=== PATIENT | female | born 1930 | race Caucasian/White ===

== ENCOUNTER 2016-10-06 14:30 | Emergency (ER) | payer MEDICARE, BC ==
--- NOTE | 2016-10-06 16:34 | ED ---
General Adult HPI - General Chief complaint: Wound/Laceration Stated complaint: Laceration Time Seen by Provider: 10/06/16 16:04 Source: patient, RN notes reviewed Mode of arrival: ambulatory Limitations: no limitations - History of Present Illness Initial comments: Patient is a 86-year-old female who presents emergency room today with a chief complaint of laceration to the left ankle and a fall. She does admit that she was walking out towards her was on a tractor she got too close and got hit by one of the arms causing a laceration to the left ankle does cause her to fall down hitting her right hip. She denies any head injury or loss consciousness. She does admit that she's been ambulatory but is having some pain to the medial aspect of the left ankle and right hip area. She states worse with movements. She denies any other complaints. Denies any head injury or loss conscious. Patient denies any recent fever, chills, shortness of breath , chest pain, back pain, abdominal pain, nausea or vomiting, numbness or tingling, dysuria or hematuria, constipation or diarrhea, headaches or visual changes, or any other complaints. - Related Data Home Medications Medication Instructions Recorded Confirmed Amiodarone [Cordarone] 100 mg PO DAILY 10/06/16 10/06/16 Losartan [Cozaar] 25 mg PO DAILY 10/06/16 10/06/16 Metoprolol Tartrate [Lopressor] 50 mg PO BID 10/06/16 10/06/16 Spironolactone [Aldactone] 25 mg PO DAILY 10/06/16 10/06/16 Warfarin [Coumadin] 5 mg PO MOWEFR 10/06/16 10/06/16 Warfarin [Coumadin] 5 mg PO SUTUTHSA 10/06/16 10/06/16 Previous Rx's Medication Instructions Recorded Cephalexin [Keflex] 500 mg PO Q12HR 7 Days 10/06/16 Allergies Allergy/AdvReac Type Severity Reaction Status Date / Time No Known Allergies Allergy Verified 10/06/16 16:59 Review of Systems ROS Statement: Those systems with pertinent positive or pertinent negative responses have been documented in the HPI. ROS Other: All systems not noted in ROS Statement are negative. Past Medical History Past Medical History: No Reported History History of Any Multi-Drug Resistant Organisms: None Reported Past Surgical History: Appendectomy, Tonsillectomy Additional Past Surgical History / Comment(s): right nephrectomy Past Psychological History: Anxiety Smoking Status: Former smoker Past Alcohol Use History: None Reported Past Drug Use History: None Reported General Exam - General Exam Comments Initial Comments: General: The patient is awake and alert, in no distress, and does not appear acutely ill. Eye: Pupils are equal, round and reactive to light, extra-ocular movements are intact. No nystagmus. There is normal conjunctiva bilaterally. No signs of icterus. Ears, nose, mouth and throat: There are moist mucous membranes and no oral lesions. Neck: The neck is supple, there is no tenderness or JVD. Cardiovascular: There is a regular rate and rhythm. No murmur, rub or gallop is appreciated. Respiratory: Lungs are clear to auscultation, respirations are non-labored, breath sounds are equal. No wheezes, stridor, rales, or rhonchi. Gastrointestinal: Soft, non-distended, non-tender abdomen without masses or organomegaly noted. There is no rebound or guarding present. No CVA tenderness. Bowel sounds are unremarkable. Musculoskeletal: Normal ROM. Patient has normal appearance of the right lower leg no deformity. No shortening or rotation. Does have mild tenderness over the lateral aspect of the right hip. Mild tenderness over the lower lumbar L3- S1. Increased paravertebral tenderness on the right side of the lower lumbar. No step-offs forms appreciated. No tenderness in thoracic or cervical spine. No tenderness in the upper extremities. Patient does have laceration to the medial aspect of the left ankle. She shows full range motion. Cap refill less than 2 seconds. Pulses equal bilaterally 2+. Strength 5/5 in all directions. Sensation intact. Pulses equal bilaterally 2+. Neurological: A&O x 3. CN II-XII intact, There are no obvious motor or sensory deficits. Coordination appears grossly intact. Speech is normal. Skin: Patient does have laceration to the medial aspect of the left ankle. No active bleeding. Psychiatric: Cooperative, appropriate mood & affect, normal judgment. Limitations: no limitations Course Vital Signs 10/06/16 14:32 Temperature 97.8 F Pulse Rate 56 L Respiratory 20 Rate Blood Pressure 136/63 O2 Sat by Pulse 99 Oximetry Procedures - Procedures Initial comment: Vision does have a 5cm shaped laceration to the medial aspect of the left ankle. The skin was anesthetized with 1% lidocaine. The laceration was then cleansed with Betadine and irrigated with normal saline. The wound was inspected , and there was no evidence of injury to deep structures. No foreign body was noted in the wound. A total of 10 skin sutures were placed utilizing 4-0 nylon. Medical Decision Making - Medical Decision Making Patient's x-rays reviewed and are negative for any acute fracture dislocation. Results were discussed with the patient. Patient's tetanus updated here in the emergency room. Patient's wound cleaned and closed with sutures. Patient will be placed on antibiotics cover for infection. Advised watch for any signs of infection return for any other concerns. She states understanding and is in agreement. Disposition Clinical Impression: Laceration, Contusion, hip Disposition: HOME SELF-CARE Condition: Good Instructions: Laceration (ED) Additional Instructions: Please use medication as discussed. Please follow-up with family doctor in the next 2 days of symptoms have not improved. Please return to emergency room if the symptoms increase or worsen or for any other concerns. Prescriptions: Cephalexin [Keflex] 500 mg PO Q12HR 7 Days Referrals: Starr Flores DO [Primary Care Provider] - 1-2 days Time of Disposition: 17:25
--- NOTE | 2016-10-06 16:43 | XR ---
EXAMINATION TYPE: XR ankle complete LT DATE OF EXAM: 10/06/2016 4:33 PM COMPARISON: NONE HISTORY: Tractor blade laceration TECHNIQUE: 3 views left ankle FINDINGS: There is soft tissue swelling over the medial malleolus. Gastric calcification is present. The ankle mortise appears intact. No acute fractures are evident There is identification of a radiopaque foreign body within the foot which is a known needle. Plantar and Achilles tendon calcaneal heel spurs are present. IMPRESSION: 1. Radiopaque foreign body, no needle. 2. No acute fractures. 3. Mild soft tissue swelling medial malleolus.
--- NOTE | 2016-10-06 16:44 | XR ---
EXAMINATION TYPE: XR lumbar spine 2 or 3V DATE OF EXAM: 10/06/2016 4:34 PM COMPARISON: NONE HISTORY: Pain fall TECHNIQUE: 3 view lumbar spine FINDINGS: There is a scoliosis present. There 5 lumbar-type vertebral bodies. Pedicles are intact. De generative disc changes are present. Left paraspinal surgical clips are present. Vascular calcificati ons within the aorta. IMPRESSION: 1. Chronic changes. No acute changes are evident.
--- NOTE | 2016-10-06 16:45 | XR ---
EXAMINATION TYPE: XR Hip RT and AP Pelvis DATE OF EXAM: 10/06/2016 4:34 PM COMPARISON: NONE HISTORY: Fall, pain TECHNIQUE: AP pelvis FINDINGS: No acute fractures are evident. The femoral heads articulate with the acetabulum. Mild narr owing of the joint spaces is present. Symphysis pubis appears normal. Sacroiliac joints have degenera tive change. Attempted fusion is not excluded. Consider ankylosing spondylitis within the differentia l. IMPRESSION: 1. No acute osseous abnormality.
[2016-10-06] MEDS ORDERED: DIPH,PERTUS(ACELL)TETVAC-LF 0.5 ML VIAL IM ONE (17:25)
[2016-10-06 17:45] VITALS: BP 175/86; PULSE 50; RESP 18; TEMP 98
== END 2016-10-06 17:46 | disposition home or self-care (01) ==
LOC: EC 14:30
DX: S91.012A Laceration without foreign body, left ankle, initial encounter (principal); S70.01XA Contusion of right hip, initial encounter; Z23 Encounter for immunization; Z87.891 Personal history of nicotine dependence; Z79.01 Long term (current) use of anticoagulants; Z79.899 Other long term (current) drug therapy; W30.81XA Contact with agricultural transport vehicle in stationary use, initial encounter; W18.39XA Other fall on same level, initial encounter; Y92.89 Other specified places as the place of occurrence of the external cause; Y93.01 Activity, walking, marching and hiking
CPT/HCPCS: 12002; 72100; 73502; 90471; 90715; 99283

== ENCOUNTER 2016-10-08 16:40 | Emergency (ER) | payer MEDICARE, BC ==
[2016-10-08 17:03] VITALS: RESP 20
[2016-10-08] MEDS ORDERED: HYDROmorphone 1 MG/ML 1 ML SYRINGE IM STA (17:09)
--- NOTE | 2016-10-08 17:12 | ED ---
Back Pain HPI - General Chief Complaint: Back Pain/Injury Stated Complaint: Back Pain Time Seen by Provider: 10/08/16 17:06 Source: patient, RN notes reviewed Limitations: no limitations - History of Present Illness Initial Comments: 86-year-old female presents emergency department chief complaint of low back pain. Days ago the patient had a fall at home after tripping over some outdoor equipment. At that time she was seen she went under laceration repair and they did x-rays of her hips. Patient states that over the last 2 days increased back pain was never examined so she thought that she should be seen. Patient states her pain is moderate in the center of her low back across the whole back. There is no radiation down the legs. Patient has a loss of bowel or bladder function with this. Patient states that she was concerned due to the pain so she thought that she should be evaluated.Patient denies any recent fever , chills, shortness of breath, chest pain, abdominal pain, nausea vomiting, numbness or tingling, dysuria or hematuria, constipation or diarrhea, headaches or visual changes, or any other current symptoms. - Related Data Home Medications Medication Instructions Recorded Confirmed Amiodarone [Cordarone] 100 mg PO DAILY 10/06/16 10/06/16 Losartan [Cozaar] 25 mg PO DAILY 10/06/16 10/06/16 Metoprolol Tartrate [Lopressor] 50 mg PO BID 10/06/16 10/06/16 Spironolactone [Aldactone] 25 mg PO DAILY 10/06/16 10/06/16 Warfarin [Coumadin] 5 mg PO MOWEFR 10/06/16 10/06/16 Warfarin [Coumadin] 5 mg PO SUTUTHSA 10/06/16 10/06/16 Previous Rx's Medication Instructions Recorded Cephalexin [Keflex] 500 mg PO Q12HR 7 Days 10/06/16 traMADol HCl [Ultram] 50 mg PO Q4H PRN #20 tab 10/08/16 Allergies Allergy/AdvReac Type Severity Reaction Status Date / Time No Known Allergies Allergy Verified 10/08/16 17:03 Review of Systems ROS Statement: Those systems with pertinent positive or pertinent negative responses have been documented in the HPI. ROS Other: All systems not noted in ROS Statement are negative. Past Medical History Past Medical History: No Reported History History of Any Multi-Drug Resistant Organisms: None Reported Past Surgical History: Appendectomy, Tonsillectomy Additional Past Surgical History / Comment(s): right nephrectomy Past Psychological History: Anxiety Smoking Status: Former smoker Past Alcohol Use History: None Reported Past Drug Use History: None Reported General Exam - General Exam Comments Initial Comments: General: The patient is awake and alert, in no distress, and does not appear acutely ill. Eye: Pupils are equal, round. Ears, nose, mouth and throat: There are moist mucous membranes. Neck: The neck is supple, there is no tenderness. Cardiovascular: There is a regular rate and rhythm. No murmur, rub or gallop is appreciated. Respiratory: Lungs are clear to auscultation, respirations are non-labored, breath sounds are equal. No wheezes, stridor, rales, or rhonchi. Back: There is generalized tenderness with patient throughout the whole lumbar area. Negative straight leg raise bilaterally. There is no obvious deformity. No rashes noted. Musculoskeletal: Normal ROM, no tenderness, There is no pedal edema. There is no calf tenderness or swelling. Sensation intact. Pulses equal bilaterally 2+. Neurological: CN II-XII intact, There are no obvious motor or sensory deficits. Coordination appears grossly intact. Speech is normal. Skin: Skin is warm and dry and no rashes or lesions are noted. Psychiatric: Cooperative, appropriate mood & affect, normal judgment. Limitations: no limitations Course Vital Signs 10/08/16 16:57 Temperature 98.3 F Pulse Rate 53 L Respiratory 20 Rate Blood Pressure 218/97 O2 Sat by Pulse 100 Oximetry Medical Decision Making - Medical Decision Making 86-year-old female presents emergency Department chief complaint of low back pain. This occurred after fall. Patient is found be hypertensive with pain medication her blood pressure did improve. This and the patient's pain has improved. At this time we will give her prescription for pain medication for home. We discussed follow-up return parameters. Patient's questions. She is interested in pain. She will be discharged home. - Radiology Data Radiology results: report reviewed, image reviewed Disposition Clinical Impression: Lumbar strain Disposition: HOME SELF-CARE Condition: Stable Instructions: Acute Low Back Pain (ED) Additional Instructions: Please use medication as discussed. Please follow up with family doctor if symptoms have not improved over the next two days. Please return to the emergency room if your symptoms increase or worsen or for any other concerns. Prescriptions: traMADol HCl [Ultram] 50 mg PO Q4H PRN #20 tab PRN Reason: Pain Referrals: Starr Flores DO [Primary Care Provider] - 1-2 days Time of Disposition: 18:24
--- NOTE | 2016-10-08 17:55 | XR ---
EXAMINATION TYPE: XR lumbar spine 2 or 3V DATE OF EXAM: 10/08/2016 5:45 PM COMPARISON: NONE HISTORY: Pain low back, fall TECHNIQUE: 3 view lumbar spine FINDINGS: Mild loss of disc height is present within the L3-4 L4-5 levels. Vertebral body heights are preserved. L5-S1 disc space narrowing is present. Scoliosis is present. There 5 lumbar-type vertebra l bodies. The pedicles are intact. Left paraspinal surgical clips in the upper abdomen. IMPRESSION: 1. Scoliosis with mild degenerative disc changes.
[2016-10-08 18:24] VITALS: BP 151/87; PULSE 62
[2016-10-08 18:39] VITALS: TEMP 98.2
== END 2016-10-08 18:39 | disposition home or self-care (01) ==
LOC: EC 16:40
DX: S39.012A Strain of muscle, fascia and tendon of lower back, initial encounter (principal); Z87.891 Personal history of nicotine dependence; Z79.899 Other long term (current) drug therapy; Z79.01 Long term (current) use of anticoagulants; W01.0XXA Fall on same level from slipping, tripping and stumbling without subsequent striking against object, initial encounter
CPT/HCPCS: 99283; 96372; 72100; J1170

== ENCOUNTER 2016-10-19 13:21 | Emergency (ER) | payer MEDICARE, BC ==
--- NOTE | 2016-10-19 14:14 | ED ---
Wound/Laceration HPI <PankajMerrick muhammad - Last Filed: 10/19/16 15:34> - General Source: patient, RN notes reviewed, old records reviewed Mode of arrival: ambulatory Limitations: no limitations <Angelika Green - Last Filed: 10/19/16 15:41> - General Chief Complaint: Wound/Laceration Stated Complaint: poss suture site infection Time Seen by Provider: 10/19/16 13:42 - History of Present Illness Initial Comments: This is a pleasant 86-year-old female presenting to the emergency department with chief complaint of left ankle pain and swelling around an area of sutures. Patient reports that approximately 2 weeks ago she was walking out in the lawn when her accidentally hit her with the blade of a lawnmower. Patient reports that she came to the emergency department and received 10 sutures on the left medial ankle. Patient reports that she was placed on antibiotics and took them faithfully for the past week after their prescribed. Patient reports that she's been off antibiotics for one week. She reports that over the past few days off the antibiotic she's noticed increased swelling and redness around the area of the sutures. Patient states that she does have varicose veins in her legs but has never had any history of heart failure and significant edema. Patient reports it's only on the left ankle that she has swelling. Patient reports that the area of redness extends approximately 4" x 4 ". She denies any history of diabetes. (Angelika Green) - Related Data Home Medications Medication Instructions Recorded Confirmed Amiodarone [Cordarone] 100 mg PO DAILY 10/06/16 10/19/16 Losartan [Cozaar] 25 mg PO DAILY 10/06/16 10/19/16 Metoprolol Tartrate [Lopressor] 50 mg PO BID 10/06/16 10/19/16 Spironolactone [Aldactone] 25 mg PO DAILY 10/06/16 10/19/16 Warfarin [Coumadin] 2.5 mg PO MOFR 10/06/16 10/19/16 Warfarin [Coumadin] 5 mg PO SUTUWETHSA 10/06/16 10/19/16 Previous Rx's Medication Instructions Recorded traMADol HCl [Ultram] 50 mg PO Q4H PRN #20 tab 10/08/16 Cephalexin [Keflex] 500 mg PO Q8HR #30 cap 10/19/16 Sulfamethox-Tmp 800-160Mg [Bactrim 1 tab PO Q12HR #20 tab 10/19/16 DS 800-160 mg] Allergies Allergy/AdvReac Type Severity Reaction Status Date / Time No Known Allergies Allergy Verified 10/19/16 14:19 Review of Systems ROS Other: All systems not noted in ROS Statement are negative. <Merrick Real - Last Filed: 10/19/16 15:34> ROS Other: All systems not noted in ROS Statement are negative. <Angelika Green - Last Filed: 10/19/16 15:41> ROS Statement: Those systems with pertinent positive or pertinent negative responses have been documented in the HPI. Past Medical History Past Medical History: No Reported History History of Any Multi-Drug Resistant Organisms: None Reported Past Surgical History: Appendectomy, Tonsillectomy Additional Past Surgical History / Comment(s): right nephrectomy Past Psychological History: Anxiety Smoking Status: Former smoker Past Alcohol Use History: None Reported Past Drug Use History: None Reported <Angelika Green - Last Filed: 10/19/16 15:41> General Exam <Merrick Real - Last Filed: 10/19/16 15:34> Limitations: no limitations General appearance: alert, in no apparent distress Head exam: Present: atraumatic, normocephalic, normal inspection Eye exam: Present: normal appearance, PERRL, EOMI. Absent: scleral icterus, conjunctival injection, periorbital swelling ENT exam: Present: normal exam, mucous membranes moist Neck exam: Present: normal inspection. Absent: tenderness, meningismus, lymphadenopathy Respiratory exam: Present: normal lung sounds bilaterally. Absent: respiratory distress, wheezes, rales, rhonchi, stridor Cardiovascular Exam: Present: regular rate, normal rhythm, normal heart sounds. Absent: systolic murmur, diastolic murmur, rubs, gallop, clicks GI/Abdominal exam: Present: soft, normal bowel sounds. Absent: distended, tenderness, guarding, rebound, rigid Extremities exam: Present: normal inspection, full ROM, normal capillary refill. Absent: tenderness, pedal edema, joint swelling, calf tenderness Left Knee exam: Present: normal inspection, full ROM Lower Leg exam: Present: normal inspection, full ROM Ankle exam: Present: tenderness, swelling, erythema (Patient is a area of erythema swelling and tenderness over the medial aspect of the ankle. Patient had the 10 sutures removed. No significant drainage from the site.). Absent: normal inspection Foot/Toe exam: Present: normal inspection, full ROM Neurovascular tendon exam: Present: no vascular compromise Gait: observed and normal Back exam: Present: normal inspection Neurological exam: Present: alert, oriented X3, CN II-XII intact Psychiatric exam: Present: normal affect, normal mood Skin exam: Present: warm, dry, intact, normal color. Absent: rash <Angelika Green - Last Filed: 10/19/16 15:41> - General Exam Comments Initial Comments: Pleasant 86-year-old female. No acute distress. (Angelika Green) Medical Decision Making - Lab Data Result diagrams: 10/19/16 14:11 10/19/16 14:11 <Merrick Real - Last Filed: 10/19/16 15:34> - Lab Data Result diagrams: 10/19/16 14:11 10/19/16 14:11 <Angelika Green - Last Filed: 10/19/16 15:41> - Medical Decision Making The patient was seen and examined. All diagnostics were reviewed. It is felt as though she does have a wound infection where the sutures were placed in her left medial ankle region. Discussion was held regarding inpatient versus outpatient treatment. She would like to attempt an outpatient treatment at this time. Close return parameters are discussed. The case is discussed with the PA and I agree with the findings as documented. (Merrick Real) Physical 86-year-old female presents prescribed chief complaint of possible infection around her sutures of her left ankle.Patient reports that approximately 2 weeks ago she was walking out in the lawn when her accidentally hit her with the blade of a lawnmower. Patient reports that she came to the emergency department and received 10 sutures on the left medial ankle. Patient reports that she was placed on antibiotics and took them faithfully for the past week after their prescribed. Patient reports that she' s been off antibiotics for one week. Patient received lab work. White count is normal. Patient's creatinine is slightly elevated. This is diminished from previous labwork she's had a month ago. Patient's ultrasound is negative for DVT. Patient case was discussed Dr. Real. We discussed the possibility of inpatient was outpatient treatment. Patient reports that she liked or outpatient treatment. She'll be discharged with Keflex and Bactrim. Discussed close return parameters and wound care instructions. Patient understands treatment plan will comply. Return parameters were discussed. (Angelika Green) - Lab Data Lab Results 10/19/16 10/19/16 10/19/16 Range/Units 14:11 14:11 14:11 WBC 6.8 (3.8-10.6) k/uL RBC 3.38 L (3.80-5.40) m/uL Hgb 10.1 L D (11.4-16.0) gm/dL Hct 30.1 L (34.0-46.0) % MCV 89.1 (80.0-100.0) fL MCH 30.0 (25.0-35.0) pg MCHC 33.7 (31.0-37.0) g/dL RDW 15.9 H (11.5-15.5) % Plt Count 171 (150-450) k/uL Neutrophils % 68 % Lymphocytes % 19 % Monocytes % 8 % Eosinophils % 4 % Basophils % 0 % Neutrophils # 4.6 (1.3-7.7) k/uL Lymphocytes # 1.3 (1.0-4.8) k/uL Monocytes # 0.5 (0-1.0) k/uL Eosinophils # 0.3 (0-0.7) k/uL Basophils # 0.0 (0-0.2) k/uL PT (9.0-12.0) sec INR (<1.1) APTT (22.0-30.0) sec Sodium 138 (137-145) mmol/L Potassium 4.9 (3.5-5.1) mmol/L Chloride 105 (98-107) mmol/L Carbon Dioxide 25 (22-30) mmol/L Anion Gap 8 mmol/L BUN 31 H (7-17) mg/dL Creatinine 1.60 H (0.52-1.04) mg/dL Est GFR (MDRD) Af Amer 37 (>60 ml/min/1.73 sqM) Est GFR (MDRD) Non-Af 31 (>60 ml/min/1.73 sqM) Glucose 90 (74-99) mg/dL Plasma Lactic Acid Blake 0.6 L (0.7-2.0) mmol/L Calcium 9.5 (8.4-10.2) mg/dL Total Bilirubin 1.1 (0.2-1.3) mg/dL AST 30 (14-36) U/L ALT 32 (9-52) U/L Alkaline Phosphatase 86 (38-126) U/L Total Protein 7.0 (6.3-8.2) g/dL Albumin 3.7 (3.5-5.0) g/dL 10/19/16 Range/Units 14:11 WBC (3.8-10.6) k/uL RBC (3.80-5.40) m/uL Hgb (11.4-16.0) gm/dL Hct (34.0-46.0) % MCV (80.0-100.0) fL MCH (25.0-35.0) pg MCHC (31.0-37.0) g/dL RDW (11.5-15.5) % Plt Count (150-450) k/uL Neutrophils % % Lymphocytes % % Monocytes % % Eosinophils % % Basophils % % Neutrophils # (1.3-7.7) k/uL Lymphocytes # (1.0-4.8) k/uL Monocytes # (0-1.0) k/uL Eosinophils # (0-0.7) k/uL Basophils # (0-0.2) k/uL PT 25.1 H (9.0-12.0) sec INR 2.6 (<1.1) APTT 31.3 H (22.0-30.0) sec Sodium (137-145) mmol/L Potassium (3.5-5.1) mmol/L Chloride (98-107) mmol/L Carbon Dioxide (22-30) mmol/L Anion Gap mmol/L BUN (7-17) mg/dL Creatinine (0.52-1.04) mg/dL Est GFR (MDRD) Af Amer (>60 ml/min/1.73 sqM) Est GFR (MDRD) Non-Af (>60 ml/min/1.73 sqM) Glucose (74-99) mg/dL Plasma Lactic Acid Blake (0.7-2.0) mmol/L Calcium (8.4-10.2) mg/dL Total Bilirubin (0.2-1.3) mg/dL AST (14-36) U/L ALT (9-52) U/L Alkaline Phosphatase (38-126) U/L Total Protein (6.3-8.2) g/dL Albumin (3.5-5.0) g/dL Disposition <Merrick Real J - Last Filed: 10/19/16 15:34> Time of Disposition: 15:39 <Angelika Green - Last Filed: 10/19/16 15:41> Clinical Impression: Cellulitis of left ankle Disposition: HOME SELF-CARE Condition: Good Instructions: Wound Infection (ED), Cellulitis (ED) Additional Instructions: Patient advised to complete the antibiotic prescription. Close follow-up with her primary care provider and to have her Coumadin level checked as this can be slightly affected with antibiotic. Return to the emergency department in 2-3 days of. Patient advised to keep the area covered this has been near taking a shower. Patient advised to apply bacitracin as well over the area. Return to the emergency department if any alarming signs or symptoms occur. Prescriptions: Cephalexin [Keflex] 500 mg PO Q8HR #30 cap Sulfamethox-Tmp 800-160Mg [Bactrim DS 800-160 mg] 1 tab PO Q12HR #20 tab Referrals: Starr Flores DO [Primary Care Provider] - 1-2 days
[2016-10-19 14:34] LABS: Basophils % (A) 0 %; CH 29.7; CHCM 33.6; Eosinophils # (A) 0.3 k/uL (0-0.7); Eosinophils % (A) 4 %; HCT 30.1 % (34.0-46.0); HDW 2.94; Luc # (Auto) 0.12; Luc % (Auto) 2; Lymphocytes # (A) 1.3 k/uL (1.0-4.8); Lymphocytes % (A) 19 %; MCHC 33.7 g/dL (31.0-37.0); MCV 89.1 fL (80.0-100.0); Mean Platelet Volume 9.2; Monocytes # (A) 0.5 k/uL (0-1.0); Monocytes % (A) 8 %; Neutrophils # (A) 4.6 k/uL (1.3-7.7); Neutrophils % (A) 68 %; RBC 3.38 m/uL (3.80-5.40); RDW 15.9 % (11.5-15.5); WBC 6.8 k/uL (3.8-10.6); WBC (Perox) 6.61
[2016-10-19 14:39] LABS: HGB 10.1 gm/dL (11.4-16.0)
[2016-10-19 14:41] LABS: Calcium 9.5 mg/dL (8.4-10.2); INR 2.6 (<1.1); Partial Thromboplastin Time 31.3 sec (22.0-30.0); Potassium 4.9 mmol/L (3.5-5.1); Prothrombin Time 25.1 sec (9.0-12.0); Total Bilirubin 1.1 mg/dL (0.2-1.3)
--- NOTE | 2016-10-19 15:27 | US ---
EXAMINATION TYPE: US venous doppler duplex LE LT DATE OF EXAM: 10/19/2016 3:13 PM COMPARISON: NONE CLINICAL HISTORY: Pain. Left leg pain. SIDE PERFORMED: Left TECHNIQUE: The lower extremity deep venous system is examined utilizing real time linear array sonog ryan with graded compression, doppler sonography and color-flow sonography. VESSELS IMAGED: External Iliac Vein (EIV) Common Femoral Vein Deep Femoral Vein Greater Saphenous Vein * Femoral Vein Popliteal Vein Small Saphenous Vein * Proximal Calf Veins (* superficial vessels) Left Leg: Negative for DVT Grayscale, color doppler, spectral doppler imaging performed of the deep veins of the lower extremiti es. There is normal flow, compressibility, vascular waveforms bilaterally. IMPRESSION: No ultrasound evidence for acute DVT in the left lower extremity.
[2016-10-19 16:05] VITALS: BP 166/78; PULSE 51; RESP 18; TEMP 97.9
== END 2016-10-19 16:06 | disposition home or self-care (01) ==
LOC: EC 13:21
DX: L03.116 Cellulitis of left lower limb (principal); Z87.891 Personal history of nicotine dependence; Z79.01 Long term (current) use of anticoagulants; Z79.899 Other long term (current) drug therapy
CPT/HCPCS: 36415; 80053; 83605; 85025; 85610; 85730; 87040; 99284

== ENCOUNTER → 2019-06-15 | Outpatient (CLI) | payer MEDICARE, BC ==
--- NOTE | 2019-06-15 12:12 | CT ---
EXAMINATION TYPE: CT chest wo con DATE OF EXAM: 06/15/2019 COMPARISON: None HISTORY: SOB x3 weeks. Hx of anuerysm CT DLP: 356 mGycm. Automated Exposure Control for Dose Reduction was Utilized. TECHNIQUE: CT scan of the thorax is performed without IV contrast. FINDINGS: LUNGS: Biapical pleural thickening. There are patchy ill-defined infiltrate seen in the perihilar reg ions bilaterally most likely postinfectious or postinflammatory. Areas of tree-in-bud pattern can be associated with mycobacterial or granulomatous infection. 7 mm nodule left lung base is incidentally noted. No pleural effusion or pneumothorax.. MEDIASTINUM: Lack of IV contrast is noted to limit evaluation for mediastinal and especially hilar ad enopathy. There are no definitive greater than 1 cm hilar or mediastinal lymph nodes. Heart is enlarg ed there is coronary artery atherosclerotic changes. Dense three-vessel coronary artery disease noted . AORTA: At the level the aortic root and thoracic aneurysm measures 4.5 cm. Long the mid course of the ascending aorta there is a maximal dimension of 4.5 cm. At the level the aortic arch there is a maximal dimension of 4.7 cm. Proximal descending thoracic aorta measures 2.9 cm in remaining course of descending thoracic aorta o f normal caliber. Atherosclerotic changes of the aorta noted. OTHER: Surgical clips are seen in the left renal bed correlate for previous nephrectomy. Hypertrophic and degenerative change of the spine is noted. Hypodensities within the liver too small to character ize by noncontrast technique. Correlate with ultrasound as clinically warranted. Diverticulosis of th e bowel noted. Indeterminate 1 cm left adrenal nodule. Bilateral thyroid nodules. IMPRESSION: 1. Diffuse aneurysmal dilation of the ascending aorta extending to the level the aortic arch with max imal dimension of 4.7 cm. 2. Severe cardiomegaly with dense three-vessel coronary artery disease. 3. There are bilateral patchy infiltrates involving all lobes and segments bilaterally. Findings are most likely postinfectious or postinflammatory. Neoplastic process felt less likely. Additionally pne umoconiosis or hypersensitivity reaction within the differential diagnosis. 4. Additionally there is a 7 mm left lower lobe pulmonary nodule. Recommend 6 month follow-up CT to c onfirm stability of size. 5 bilateral thyroid nodules with the largest seen in the right measuring 1. 4 cm.
== END | disposition home or self-care (01) ==
LOC: RADCTMAIN 11:05
PROVIDERS: ATTEND Family Medicine
DX: I71.2 Thoracic aortic aneurysm, without rupture (principal); R91.8 Other nonspecific abnormal finding of lung field; I25.10 Atherosclerotic heart disease of native coronary artery without angina pectoris; I51.7 Cardiomegaly; E04.2 Nontoxic multinodular goiter
CPT/HCPCS: 71250

== ENCOUNTER → 2019-12-12 | Outpatient (CLI) | payer MEDICARE, BC ==
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
== END | disposition home or self-care (01) ==
LOC: RADCTMAIN 13:42
PROVIDERS: ATTEND Family Medicine
DX: I71.2 Thoracic aortic aneurysm, without rupture (principal); R91.1 Solitary pulmonary nodule
CPT/HCPCS: 36415; 71250; 82565; 84520

== ENCOUNTER → 2020-01-22 | Outpatient (CLI) | payer MEDICARE, BC ==
--- NOTE | 2020-01-22 17:00 | XR ---
EXAMINATION TYPE: XR thoracic spine complete DATE OF EXAM: 01/22/2020 CLINICAL HISTORY: Thoracic pain after fall TECHNIQUE: Frontal, lateral, and swimmer's view of thoracic spine are obtained. COMPARISON: CT chest 12/12/2019 FINDINGS: There is decreased osseous mineralization. Thoracic spine show satisfactory alignment witho ut evidence of acute fracture or dislocation. Vertebral body heights are preserved. Multilevel endpl ate spurring Visualized ribs demonstrate no evidence of displaced fracture. Calcified atherosclerotic disease of the thoracic and abdominal aorta. IMPRESSION: No acute fracture or dislocation is seen in the thoracic spine.
== END | disposition home or self-care (01) ==
LOC: RADXRYALE 14:24
PROVIDERS: ATTEND Nurse Practitioner
DX: M54.6 Pain in thoracic spine (principal)
CPT/HCPCS: 72072